=== PATIENT | male | born 1960 | race Caucasian/White ===

== ENCOUNTER 2018-03-27 12:25 | Emergency (ER) | payer OTHER ==
[~2018-03-27] VITALS: Ht 195.6 cm; Wt 147.0 kg
[2018-03-27 12:59] VITALS: BP 168/102; PULSE 80; RESP 17; TEMP 98.5; O2SAT 95
[2018-03-27] MEDS ORDERED: METF1000 PO (13:56)
[2018-03-27] MEDS ORDERED: PANT20TA2 PO (13:56)
[2018-03-27] MEDS ORDERED: PLAV75TA29 PO (13:56)
[2018-03-27] MEDS ORDERED: BUPR100CR PO (13:56)
[2018-03-27] MEDS ORDERED: CARV3.12 PO (13:56)
[2018-03-27] MEDS ORDERED: SIMV5TAB3 PO (13:56)
[2018-03-27] MEDS ORDERED: CITA10TA4 PO (13:56)
[2018-03-27] MEDS ORDERED: GLIP5TAB8 PO (13:56)
[2018-03-27] MEDS ORDERED: LEVEMIR SQ (13:56)
[2018-03-27] MEDS ORDERED: HYDR12.57 PO (13:56)
[2018-03-27 13:58] VITALS: BP 142/99; PULSE 71; RESP 16; TEMP 98; O2SAT 100
[2018-03-27] MEDS ORDERED: VITA1000 PO (13:58)
[2018-03-27 14:01] VITALS: BP 142/99; PULSE 73; RESP 16; TEMP 98; O2SAT 100
--- NOTE | 2018-03-27 14:22 | RADRPT ---
EXAM DATE: 03/27/2018 2:14 PM EDT AGE/SEX: 58 years / Male INDICATIONS: Shortness of breath. CLINICAL DATA: This is the patient's initial encounter. Patient reports that signs and symptoms have been present for 3 days and indicates a pain score of 0/10. MEDICAL/SURGICAL HISTORY: Hypertension. . Stents X2. COMPARISON: No prior exams available for comparison. FINDINGS: A single AP view of the chest demonstrates the lungs to be symmetrically aerated without evidence of mass, infiltrate or effusion. Minimal linear atelectasis within the lingula. The cardiomediastinal c ontours are unremarkable. Osseous structures are intact. CONCLUSION: Negative examination. Electronically signed by: Tommy Reyes MD 03/27/2018 2:21 PM EDT
--- NOTE | 2018-03-27 15:14 | PD ---
HPI . Swelling and shortness of breath Chief Complaint: Edema Time Seen by Provider: 13:23 Travel History International Travel<30 days: No Contact w/Intl Traveler<30days: No Traveled to known affect area: No History of Present Illness HPI This is a patient from [place] who has a history of DAVIS who is on the liver transplant list in [place] who presents to us with a chief complaint of swelling and shortness of breath. Onset of symptoms was a few days ago. His symptoms are getting progressively worse. He is here on vacation. He states that he has never had problems with peripheral edema. He reports a 20 pound weight gain over the last few days. He has had problems with anemia secondary to blood loss from bleeding esophageal varices. He had an episode of bleeding varices at the end of February. He has had a recent transfusion. His states that his hemoglobin just prior to leaving for vacation was 8.1. She states that his symptoms today are similar to symptoms that he has had in the past with anemia. Specifically, he has shortness of breath, especially dyspnea on exertion and unusual fatigue. He is swelling is mild to moderate. PFSH Past Medical History Anemia: Yes Anxiety: Yes Depression: Yes Heart Rhythm Problems: Yes (a fib) Cardiac Catheterization: Yes (2 stents) Cardiovascular Problems: Yes ([place]) Cirrhosis: Yes (on liver transplant list ) Diabetes: Yes Patient Takes Glucophage: Yes Diminished Hearing: No Hypertension: Yes Tetanus Vaccination: > 5 Years Influenza Vaccination: Yes ?: Not Past Surgical History Abdominal Surgery: Yes Appendectomy: Yes (ruptured) Genitourinary Surgery: Yes (banding of varicies) Social History Alcohol Use: No Tobacco Use: No Substance Use: No Allergies-Medications (Allergen,Severity, Reaction): Coded Allergies: No Known Allergies (Unverified , 03/27/18) Reported Meds & Prescriptions Reported Meds & Active Scripts Active Potassium Chloride ER (Potassium Chloride) 20 Meq Tab 40 Meq PO DAILY Lasix (Furosemide) 40 Mg Tab 40 Mg PO DAILY Spironolactone 100 Mg Tab 100 Mg PO DAILY Reported Vitamin D-1000 (Cholecalciferol) 1,000 Unit Tab 1,000 Units PO DAILY Wellbutrin SR 12 HR (Bupropion HCl) 100 Mg Tab Unknown Dose PO DAILY Levemir Inj (Insulin Detemir) 1,000 unit/ 10 ML Vial 20 Units SQ HS Do not mix with any other Insulin. Pantoprazole (Pantoprazole Sodium) 20 Mg Tab Unknown Dose PO DAILY Carvedilol 3.125 Mg Tab Unknown Dose PO BID Simvastatin 5 Mg Tab Unknown Dose PO DAILY Citalopram (Citalopram Hydrobromide) 10 Mg Tab 10 Mg PO DAILY Hydrochlorothiazide 12.5 Mg Cap Unknown Dose PO DAILY Plavix (Clopidogrel Bisulfate) 75 Mg Tab Unknown Dose PO DAILY Glipizide 5 Mg Tab Unknown Dose PO DAILY Take 30 minutes before a meal Metformin (Metformin HCl) 1,000 Mg Tab 1,000 Mg PO BID With a meal Review of Systems Except as stated in HPI: all other systems reviewed are Neg General / Constitutional: No: Fever, Chills Eyes: No: Blurred Vision HENT: No: Headaches Cardiovascular: No: Chest Pain or Discomfort Respiratory: Positive: Shortness of Breath Musculoskeletal: Positive: Edema Physical Exam Narrative GENERAL: Awake and alert. SKIN: warm/dry. Pale. HEAD: Normocephalic. Atraumatic. EYES: Pupils equal and round. Extraocular movements are intact. ENT: Mucous membranes pink and moist. NECK: Supple. Full range of motion without pain.. CARDIOVASCULAR: Regular rate and rhythm. Heart sounds are normal. RESPIRATORY: No accessory muscle use. Clear to auscultation. Breath sounds equal bilaterally. GASTROINTESTINAL: Abdomen soft. Edema of the abdominal wall. Bloated. MUSCULOSKELETAL: No obvious deformities. Normal muscle tone. 2+ pretibial pitting edema. NEUROLOGICAL: Awake and alert. No obvious cranial nerve deficits. Motor grossly within normal limits. Normal speech. PSYCHIATRIC: Appropriate mood and affect; insight and judgment normal. Data Data Last Documented VS Vital Signs Date Time Temp Pulse Resp B/P (MAP) Pulse Ox O2 Delivery O2 Flow Rate FiO2 03/27/18 18:30 66 16 175/79 (111) 100 Room Air 03/27/18 14:01 98.0 Orders Orders Complete Blood Count With Diff (03/27/18 13:24) Comprehensive Metabolic Panel (03/27/18 13:24) Act Partial Throm Time (Ptt) (03/27/18 13:24) Prothrombin Time / Inr (Pt) (03/27/18 13:24) Troponin I (03/27/18 13:24) Iv Access Insert/Monitor (03/27/18 13:24) Electrocardiogram (03/27/18 13:24) Ecg Monitoring (03/27/18 13:24) Oximetry (03/27/18 13:24) Chest, Single Ap (03/27/18 13:24) Us Abdomen Lower Limited (03/27/18 ) D-Dimer (03/27/18 15:15) Ct Pulmonary Angiogram (03/27/18 16:24) Sodium Chlor 0.9% 1000 Ml Inj (Ns 1000 M (03/27/18 16:30) Spironolactone (Aldactone) (03/27/18 18:45) Furosemide Inj (Lasix Inj) (03/27/18 18:45) Potassium Chloride (Kcl) (03/27/18 18:45) Ed Discharge Order (03/27/18 18:35) Labs Laboratory Tests Test 03/27/18 14:25 White Blood Count 1.9 TH/MM3 Red Blood Count 3.04 MIL/MM3 Hemoglobin 7.8 GM/DL Hematocrit 24.6 % Mean Corpuscular Volume 80.9 FL Mean Corpuscular Hemoglobin 25.5 PG Mean Corpuscular Hemoglobin Concent 31.6 % Red Cell Distribution Width 19.7 % Platelet Count 62 TH/MM3 Mean Platelet Volume 9.8 FL Neutrophils (%) (Auto) 64.2 % Lymphocytes (%) (Auto) 20.8 % Monocytes (%) (Auto) 11.6 % Eosinophils (%) (Auto) 2.7 % Basophils (%) (Auto) 0.7 % Neutrophils # (Auto) 1.2 TH/MM3 Lymphocytes # (Auto) 0.4 TH/MM3 Monocytes # (Auto) 0.2 TH/MM3 Eosinophils # (Auto) 0.1 TH/MM3 Basophils # (Auto) 0.0 TH/MM3 CBC Comment AUTO DIFF Differential Comment AUTO DIFF CONFIRMED Platelet Estimate LOW Platelet Morphology Comment ENLARGED Prothrombin Time 11.4 SEC Prothromb Time International Ratio 1.1 RATIO Activated Partial Thromboplast Time 25.9 SEC D-Dimer Quantitative (PE/DVT) 1.16 MG/L FEU Blood Urea Nitrogen 14 MG/DL Creatinine 0.86 MG/DL Random Glucose 81 MG/DL Total Protein 7.2 GM/DL Albumin 3.0 GM/DL Calcium Level 8.6 MG/DL Alkaline Phosphatase 82 U/L Aspartate Amino Transf (AST/SGOT) 21 U/L Alanine Aminotransferase (ALT/SGPT) 20 U/L Total Bilirubin 0.9 MG/DL Sodium Level 141 MEQ/L Potassium Level 3.4 MEQ/L Chloride Level 103 MEQ/L Carbon Dioxide Level 29.6 MEQ/L Anion Gap 8 MEQ/L Estimat Glomerular Filtration Rate 92 ML/MIN Troponin I LESS THAN 0.02 NG/ML MDM Medical Decision Making Medical Screen Exam Complete: Yes Emergency Medical Condition: Yes Interpretation(s) EKG shows a sinus rhythm with a right bundle branch block. No ST segment elevation or depression. Differential Diagnosis Differential diagnosis of dyspnea includes but is not limited to congestive heart failure, pneumonia, wheezing, pneumothorax, pulmonary embolism Narrative Course This patient presents with shortness of breath and edema of his abdomen and lower extremities. He has a history of DAVIS. He is on the transplant list in [place]. He has never had problems with anasarca or peripheral edema before. He has had bleeding esophageal varices. He had a bleed a few weeks ago which required a blood transfusion. His Hgb at discharge on about 03/13 was 8.1. He also states that he had a heart attack while doing a stress test in preparation for a liver transplant. He has had no known history of CHF related to the [place]. An ultrasound has been done to evaluate the volume of ascitic fluid. A dyspnea workup is in process. CBC & BMP Diagram 03/27/18 14:25 Total Protein 7.2, Albumin 3.0 L, Calcium Level 8.6, Alkaline Phosphatase 82, Aspartate Amino Transf (AST/SGOT) 21, Alanine Aminotransferase (ALT/SGPT) 20, Total Bilirubin 0.9 D-dimer 1.16 trop < 0.[address] Angiography 03/27/18 1624 Signed Impressions: CONCLUSION: 1. Minimal bibasilar densities could be atelectasis or infiltrate. 2. Extensive coronary artery calcifications. 3. No evidence for pulmonary embolism. 4. Abdominal ascites. Chest X-Ray 03/27/18 1324 Signed Impressions: CONCLUSION: Negative examination. Abdomen Ultrasound 03/27/18 0000 Signed Impressions: CONCLUSION: 1. Moderate volume ascitic fluid. Verbal report from the radiologist was that he actually had a small amount of ascitic fluid on ultrasound. There was not enough fluid present to warrant a therapeutic paracentesis. Up-to-date has been queried. It recommends a combination of spironolactone and Lasix for treatment of edema associated with liver disease. He will also need to have a potassium supplement. These have been prescribed. I will ask him to follow-up with his doctor when he returns to [place]. Diagnosis Primary Impression: Dyspnea Qualified Codes: R06.09 - Other forms of dyspnea Additional Impressions: Anemia Qualified Codes: D50.0 - Iron deficiency anemia secondary to blood loss ( chronic) Peripheral edema Scripts Potassium Chloride ER (Potassium Chloride ER) 20 Meq Tab 40 MEQ PO DAILY for Electrolyte Replacement, #30 TAB 0 Refills Prov: Adore Hamm MD 03/27/18 Furosemide (Lasix) 40 Mg Tab 40 MG PO DAILY, #30 TAB 0 Refills Prov: Adore Hamm MD 03/27/18 Spironolactone (Spironolactone) 100 Mg Tab 100 MG PO DAILY, #30 TAB 0 Refills Prov: Adore Hamm MD 03/27/18 Disposition: 01 DISCHARGE HOME Condition: Stable Adore Hamm MD Mar 27, 2018 15:14
[2018-03-27 15:42] LABS: AUTOMATED NEUTROPHIL # 1.2 TH/MM3 (1.8-7.7); BASOPHIL % 0.7 % (0.0-2.0); EOSINOPHIL # 0.1 TH/MM3 (0-0.4); EOSINOPHIL % 2.7 % (0.0-4.0); HEMATOCRIT 24.6 % (39.0-51.0); HEMOGLOBIN 7.8 GM/DL (13.0-17.0); LYMPH % 20.8 % (9.0-44.0); LYMPHOCYTE # 0.4 TH/MM3 (1.0-4.8); MEAN CELL VOLUME 80.9 FL (80.0-100.0); MEAN CORPUSCULAR HEMOGLOBIN 25.5 PG (27.0-34.0); MEAN CORPUSCULAR HGB CONC 31.6 % (32.0-36.0); MEAN PLATELET VOLUME 9.8 FL (7.0-11.0); MONO % 11.6 % (0.0-8.0); MONOCYTE # 0.2 TH/MM3 (0-0.9); NEUT % 64.2 % (16.0-70.0); PLATELET COUNT 62 TH/MM3 (150-450); RED BLOOD COUNT 3.04 MIL/MM3 (4.50-5.90); RED CELL DISTRIBUTION WIDTH 19.7 % (11.6-17.2); WHITE BLOOD COUNT 1.9 TH/MM3 (4.0-11.0)
[2018-03-27 15:48] LABS: ALT (GPT) 20 U/L (12-78); AST (GOT) 21 U/L (15-37); BICARBONATE 29.6 MEQ/L (21.0-32.0); BLOOD UREA NITROGEN 14 MG/DL (7-18); CALCIUM 8.6 MG/DL (8.5-10.1); CHLORIDE 103 MEQ/L (98-107); CREATININE 0.86 MG/DL (0.60-1.30); GLOMERULAR FILTRATION RATE 92 ML/MIN (>89); GLUCOSE,RANDOM 81 MG/DL (74-106); SODIUM (NA) 141 MEQ/L (136-145)
[2018-03-27 15:52] LABS: ALKALINE PHOSPHATASE 82 U/L (45-117); TOTAL BILIRUBIN ADULT 0.9 MG/DL (0.2-1.0); TOTAL PROTEIN 7.2 GM/DL (6.4-8.2); TROPONIN I LESS THAN 0.02 NG/ML (0.02-0.05)
[2018-03-27 15:53] LABS: INTERNATIONAL NORMALIZED RATIO 1.1 RATIO; PROTHROMBIN TIME - PATIENT 11.4 SEC (9.8-11.6)
[2018-03-27] MEDS ORDERED: SODIUM CHLOR 0.9% 1000 ML INJ 1,000 ML IV ONE (16:30)
--- NOTE | 2018-03-27 17:48 | RADRPT ---
EXAM DATE: 03/27/2018 2:24 PM EDT AGE/SEX: 58 years / Male INDICATIONS: Ascites. CLINICAL DATA: This is the patient's initial encounter. Patient reports that signs and symptoms have been present for 1 day and indicates a pain score of 4/10. MEDICAL/SURGICAL HISTORY: Cirrhosis. Diabetes. Hypertension. Myocardial infarction. Afib. De pression. Anxiety. Anemia. On liver transplant list. Appendectomy. Coronary artery stent. Banding o f varices. COMPARISON: No prior exams available for comparison. FINDINGS: 4 quadrant ultrasound was performed to assess for ascitic fluid. A moderate amount of ascites is obse rved particularly on the right side. CONCLUSION: 1. Moderate volume ascitic fluid. Electronically signed by: Tommy Reyes MD 03/27/2018 5:47 PM EDT
--- NOTE | 2018-03-27 18:27 | RADRPT ---
EXAM DATE: 03/27/2018 6:19 PM EDT AGE/SEX: 58 years / Male INDICATIONS: Shortness of breath. CLINICAL DATA: This is the patient's initial encounter. Patient reports that signs and symptoms have been present for 1 day and indicates a pain score of 4/10. MEDICAL/SURGICAL HISTORY: Cardiovascular disease. Hypertension. Diabetes. On liver transplant li st None. RADIATION DOSE: 10.55 CTDI (mGy) COMPARISON: No prior exams available for comparison. TECHNIQUE: Volumetric scanning was performed using a multi-row detector CT scanner during bolus infu sourav of 70 ml Omnipaque 350 (iohexol) nonionic water-soluble contrast as a single exam dose. The yusuf a was post processed with a variety of visualization algorithms including full volume maximum intensi ty projection and sliding thin slab reformation. Using automated exposure control and adjustment of the mA and/or kV according to patient size, radiation dose was kept as low as reasonably achievable t o obtain optimal diagnostic quality images. FINDINGS: Pulmonary Arteries: No filling defects are seen in the pulmonary arteries out to the subsegmental ve ssels. The left and right pulmonary arteries are normal in diameter. Lung: Minimal dependent bibasilar densities. Effusion: None. Mediastinum: No evidence of mediastinal or hilar adenopathy. Extensive coronary artery calcification s. Other: The axilla is unremarkable. There is fluid in the upper abdomen likely ascites. Degenerative changes thoracic spine. CONCLUSION: 1. Minimal bibasilar densities could be atelectasis or infiltrate. 2. Extensive coronary artery calcifications. 3. No evidence for pulmonary embolism. 4. Abdominal ascites. Electronically signed by: Mckinley Keen MD 03/27/2018 6:25 PM EDT
[2018-03-27 18:30] VITALS: BP 175/79; PULSE 66; RESP 16; O2SAT 100
[2018-03-27] MEDS ORDERED: FURO1TAB60 PO (18:35)
[2018-03-27] MEDS ORDERED: POTA-163 PO (18:35)
[2018-03-27] MEDS ORDERED: SPIR100T PO (18:35)
[2018-03-27] MEDS ORDERED: SPIRONOLACTONE 100 MG TAB PO ONE (18:45)
[2018-03-27] MEDS ORDERED: POTASSIUM CHLORIDE 20 MEQ CONTROLLED RELEASE TAB PO ONE (18:45)
[2018-03-27] MEDS ORDERED: FUROSEMIDE 40 MG/4 ML VIAL IV PUSH ONE (18:45)
[2018-03-27] MEDS ORDERED: IOHEXOL 350 MG/ML 10 ML VIAL (for RAD DIAG) IVCONTRAST ONE (20:30)
--- NOTE | 2018-03-27 20:53 | EKG ---
Date Performed: 03/27/2018 Time Performed: 15:43:19 PTAGE: 58 years EKG: Sinus rhythm RIGHT BUNDLE BRANCH BLOCK LEFT ANTERIOR FASCICULAR BLOCK ABNORMAL ECG NO PREVIOUS TRACING DOCTOR: Adithya Tate Interpretating Date/Time 03/27/2018 20:51:14
== END 2018-03-27 19:10 | disposition home or self-care (01) ==
LOC: NEPE 12:25
DX: R06.00 Dyspnea, unspecified (principal); D50.0 Iron deficiency anemia secondary to blood loss (chronic); R60.0 Localized edema; I45.10 Unspecified right bundle-branch block; I44.4 Left anterior fascicular block; K75.81 Nonalcoholic steatohepatitis (NASH); I10 Essential (primary) hypertension; I85.01 Esophageal varices with bleeding; I48.91 Unspecified atrial fibrillation; I25.2 Old myocardial infarction; E11.9 Type 2 diabetes mellitus without complications; K74.60 Unspecified cirrhosis of liver; F32.9 Major depressive disorder, single episode, unspecified; F41.9 Anxiety disorder, unspecified; Z95.5 Presence of coronary angioplasty implant and graft; Z79.84 Long term (current) use of oral hypoglycemic drugs; Z79.4 Long term (current) use of insulin; Z79.899 Other long term (current) drug therapy
CPT/HCPCS: 71045; 71275; 76705; 80053; 84484; 85025; 85379; 85610; 85730; 93005; 96361; 96374; 99285; J1940; J7030; Q9967